=== PATIENT | male | born 1985 | race Caucasian/White ===

== ENCOUNTER → 2019-10-02 | Emergency (ER) | payer OTHER ==
[~2019-10-02] VITALS: Ht 182.9 cm; Wt 136.1 kg
[~2019-10-02] MED LIST: PRILOSEC OTC20 MG PO
--- NOTE | 2019-10-03 07:24 | CONS ---
[facility] [address], [place] [address] Signed DATE OF CONSULTATION: 10/02/2019 CHIEF COMPLAINT: Recurrent esophageal foreign body, proximal esophageal foreign body. HISTORY OF PRESENT ILLNESS: Arlene is a 33-year-old gentleman born with developmental delay and gastroschisis. Also, his skull was already fused at , so he did have surgery to open the skull. Later, he had a traumatic lawnmower injury to his right hand and had to have that operated on and later it sounds like an ankle fracture that needed surgery and all metal has been removed. He came in May 2018 for similar episode involving roast beef. He always points to the level of the larynx. Dr. Nolasco had seen him in consultation. Just as he went into the endoscopy suite, he retched up all the roast beef. The scope was passed and everything seemed to be fine. Some biopsy had been taken out in the midesophagus and those are not available currently. No obvious hiatal hernia. He seemed to have mild gastritis and mild gastroduodenitis. This morning, he was eating breakfast biscuit and felt the food get stuck around the level of larynx. He was spitting up all his saliva. Therefore, his sister brought him to the emergency room for evaluation. He spends time living with his dad and his sister on their [place]. 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 I have been called by the ER physician after glucagon was unsuccessful. When I came to visit Reed, he said within the last 20 minutes he thinks it has gone through, his sister said he has not spit up any saliva in the last 20 minutes. Consequently, we gave him a full cup of water and he drank it down just fine. PAST MEDICAL HISTORY: Gastroesophageal reflux disease/gastroduodenitis, esophageal foreign body in 2018, developmental delay, gastroschisis, cardiac murmur, he has fractured tooth and a chipped tooth. PAST SURGICAL HISTORY: He had a lawnmower accident to his right hand requiring surgery, but no metal. Left ankle fracture was repaired, metal has been removed. He had to have his skull opened at the time of . He had to have surgery to repair his gastroschisis. He had an upper endoscopy with Dr. Nolasco in May 2018. SOCIAL HISTORY: He does not smoke or drink. He has no primary care provider. He lives mainly with his father, David Chatterjee at [phone]. His sister is Madeline at [phone]. His mother is Karishma at [phone]. He does not drive on public highways, but he does drive the farm equipment. His sister happens to be a dental hygienist. She and her father take care of Reed. Electronically Signed By: JESSICA WILL MD 10/03/19 0724 PATIENT NAME: ARLENE CHATTERJEE CONSULTATION DATE OF : 87 REPORT #: [id number] PHYSICIAN: JESSICA WILL MD PCP: SALOME ROBERTS MD REPORT IS CONFIDENTIAL AND NOT TO BE RELEASED WITHOUT AUTHORIZATION [facility] [address] [place] [id number] Signed FAMILY HISTORY: Multiple cancers. REVIEW OF SYSTEMS: He had 10 systems reviewed and his sister was able to help him quite a bit with his previous medical history. No metal in the body to her knowledge. ALLERGIES: Sulfa. MEDICATIONS: Omeprazole since 2007. PHYSICAL EXAMINATION: VITAL SIGNS: Blood pressure 150/92, heart rate 88, respiratory rate 16, temperature is 98.4, he is 96% on room air, he is 6 feet tall at 136 kg. GENERAL: Reed is a 33-year-old gentleman lying supine semi-recumbent in his ER bed. His sister Madeline is with him. He is alert, awake, and interactive. He has no shortness of breath. He handled the saliva quite well during our conversation. LUNGS: Clear to auscultation bilaterally. HEART: Regular rate and rhythm. ABDOMEN: Moderately protuberant. I gave him a full cup of water and he drank the entire cup down and gulps. His sister tells me he eats quite rapidly and she wonders if that is not part of the problem with getting large piece of food stuck in the proximal esophagus. LABORATORY DATA: None. ASSESSMENT/PLAN: Arlene is a 33-year-old gentleman, who presents with recurrent esophageal foreign body. It sounds like he eats quite quickly and does not always chew his food well. He had an upper endoscopy back in 2018 and we can track that down along with the biopsy results in due time. His current episode has now resolved, I think the biscuit finally dissolved and it went through. We are going to have him follow him in our office. We will schedule him for an outpatient barium swallow. He is already involved with outpatient cognitive behavioral therapy as his parents are getting older and his sister wants him to be as independent as possible since she does work multimedia services coordinator. I reviewed all this with Reed and his sister, they have expressed understanding and agreed above plan. Jessica Will MD Electronically Signed By: JESSICA WILL MD 10/03/19 0724 PATIENT NAME: ARLENE CHATTERJEE CONSULTATION DATE OF : 87 REPORT #: [id number] PHYSICIAN: JESSICA WILL MD PCP: SALOME ROBERTS MD REPORT IS CONFIDENTIAL AND NOT TO BE RELEASED WITHOUT AUTHORIZATION [address] [place], [place] [address] Signed ALB/MODL /[id number] cc: Jessica Will MD Copies: JESSICA WILL MD ~ Electronically Signed By: JESSICA WILL MD 10/03/19 0724 PATIENT NAME: ARLENE CHATTERJEE CONSULTATION DATE OF : 87 REPORT #: [id number] PHYSICIAN: JESSICA WILL MD PCP: SALOME ROBERTS MD REPORT IS CONFIDENTIAL AND NOT TO BE RELEASED WITHOUT AUTHORIZATION
== END ==
LOC: ED 09:40
DX: T18.128A Food in esophagus causing other injury, initial encounter (principal); Z88.2 Allergy status to sulfonamides; Z79.899 Other long term (current) drug therapy; X58.XXXA Exposure to other specified factors, initial encounter
CPT/HCPCS: 96374; 96375; 99283-25; J1610; J2405; J7030

== ENCOUNTER 2020-04-29 02:34 | Emergency (ER) | payer OTHER ==
[~2020-04-29] VITALS: Ht 182.9 cm; Wt 136.1 kg
== END 2020-04-29 08:15 | disposition short-term general hospital (02) ==
LOC: ED 02:34
DX: S89.101A Unspecified physeal fracture of lower end of right tibia, initial encounter for closed fracture (principal); S82.831A Other fracture of upper and lower end of right fibula, initial encounter for closed fracture; S40.021A Contusion of right upper arm, initial encounter; S60.211A Contusion of right wrist, initial encounter; V86.69XA Passenger of other special all-terrain or other off-road motor vehicle injured in nontraffic accident, initial encounter; Z20.828 Contact with and (suspected) exposure to other viral communicable diseases; K21.9 Gastro-esophageal reflux disease without esophagitis; Z88.2 Allergy status to sulfonamides; Z79.899 Other long term (current) drug therapy
CPT/HCPCS: 29505; 70450; 71260; 72125; 73060; 73110; 73590; 73610; 73620; 74177; 80053; 81001; 82150; 82550; 83690; 85025; 86850; 86900; 86901; 90471; 90715; 99285-25; C9803; G0480; J1170; J2405; Q9967; U0003

== ENCOUNTER 2021-05-20 06:24 | Emergency (ER) | payer OTHER ==
[~2021-05-20] VITALS: Ht 182.9 cm; Wt 147.3 kg
[2021-05-20] MEDS ORDERED: ONDANSETRON ODT8 MG PO (09:22)
== END 2021-05-20 09:45 | disposition home or self-care (01) ==
LOC: ED 06:24
DX: K29.00 Acute gastritis without bleeding (principal); Z88.2 Allergy status to sulfonamides
CPT/HCPCS: 80053; 81001; 83690; 85025; 99284; J7030

== ENCOUNTER 2023-04-08 19:07 | Emergency (ER) | payer OTHER ==
[~2023-04-08] VITALS: Ht 182.9 cm; Wt 141.0 kg
[~2023-04-08 19:07] MED LIST changes: +HYDROCODON-ACE1 EAC8 PO; +IBUPROFEN200 M1 PO; +MULTI VITAMIN1 EACH PO; +ONDANSETRON ODT8 MG PO; +TYLENOL325 MG PO
[2023-04-08 20:04] LABS: BASOPHILS 0.8 % (0-2); HEMATOCRIT 40.4 % (35.0-50.0); HEMOGLOBIN 13.6 g/dL (12.0-18.0); LYMPHOCYTES 26.7 % (24-44); MCH 31.2 (27-36); MCHC 33.6 g/dl (30-36); MONOCYTES 9.1 % (0-12); NEUTROPHILS 61.4 % (39-80); PLATELET COUNT 292 K/uL (140-440); RBC 4.34 M/ul (4.3-5.7); RDW 14.2 (10.5-15.0)
[2023-04-08 20:12] LABS: INFLUENZA B NAA NEGATIVE (NEGATIVE); RESPIRATORY SYNCYTIAL VIR NAA NEGATIVE (NEGATIVE)
[2023-04-08 20:22] LABS: ALBUMIN 3.9 g/dL (3.4-5.0); ALBUMIN/GLOBULIN RATIO 1.11 (1.1-2.4); ANION GAP 10.5 (7-21); BILIRUBIN, TOTAL 0.4 ng/dL (0.2-1.0); BUN/CREATININE RATIO 12.5 (6.0-28.6); CALCIUM 8.7 mg/dL (8.5-10.1); CREATININE, SERUM 1.12 mg/dL (0.70-1.30); POTASSIUM 3.5 mmol/L (3.5-5.1); PROTEIN, TOTAL 7.4 g/dL (6.4-8.2)
[2023-04-08 20:32] VITALS: BP 143/90
== END 2023-04-08 20:32 | disposition home or self-care (01) ==
LOC: ED 19:07
PROVIDERS: Family Medicine
DX: T18.128A Food in esophagus causing other injury, initial encounter (principal); Z11.52 Encounter for screening for COVID-19; Z88.2 Allergy status to sulfonamides
CPT/HCPCS: 36415; 80053; 85025; 87502; C9803; J1610; U0002

== ENCOUNTER 2023-04-19 09:28 | Day surgery (SDC) | payer OTHER ==
[~2023-04-19] VITALS: Ht 185.4 cm; Wt 141.0 kg
[~2023-04-19 09:28] MED LIST changes: +CALCIUM + VITA1 EAC2 PO; +VITAMIN C125 MG PO
[2023-04-19 09:45] VITALS: BP 130/83
--- NOTE | 2023-04-19 11:21 | NUR ---
04/19/23 1121 Mary Jo Cason 1103- PT ARRIVES TO PACU IN SEMI FLORES POSITION. LR INFUSING TO RH IV, O2 AT 10 L PER MASK. OPA IN PLACE, JAW THRUST NEEDED TO MAINTAIN AIRWAY. PT NON REACTIVE TO ALL STIMULUS. ALL MONITORS IN PLACE. 1108- SATS 100% ON 10L O2 PER MASK, O2 DOWN TO 6L AT THIS TIME. WILL CONTINUE MONITOR. 1110- PT REACTIVE TO PAINFUL STIMULI WITH JAW THRUST. PT LIFT HEAD OFF OF PILLOWS AND HOLDING. PT FOLLOWS COMMANDS TO OPEN EYES AND MOUTH, OPA REMOVED. O2 REMAINS IN PLACE AT 6L PER MASK AT THIS TIME. 1116- PT SATS REMAIN 100% ON 6L O2 PER MASK, PT MOVED TO ROOM AIR AT THIS TIME. RESTING, WILL CONTINUE TO MONITOR. 1120- PT REMAINS REACTIVE TO STIMULUS BUT RESTING AT THIS TIME. BREATHING EVEN AND NON LABORED. O2 SATS 93% ON ROOM AIR.
[2023-04-19 11:35] VITALS: BP 130/76
--- NOTE | 2023-04-19 11:39 | NUR ---
PT RETURNS TO DAY SURGERY ROOM #3 ALERT AND ORIENTED. PT PROVIDED WATER, JELL-O, AND PUDDING PER HIS REQUEST. BED IN THE LOWEST POSITION, BED RAIL UP X1, CALL LIGHT PROVIDED, PT'S MOTHER AT THE BEDSIDE. PT AND PT'S MOTHER UPDATED ON PLAN OF CARE AND TIME NEEDED TO STAY BEFORE DISCHARGE. BOTH PARTIES AGREEABLE TO THIS.
[2023-04-19] MEDS ORDERED: PRILOSEC OTC20 MG PO (11:56)
--- NOTE | 2023-04-19 12:30 | NUR ---
PT ABLE TO SIT UP ON THE EDGE OF THE BED. PT REPORTS NO DIZZINESS OR NAUSEA. PT AMBULATED TO THE RESTROOM AND BACK TO HIS ROOM. PT AND PT'S MOTHER READY FOR THE PT TO GO HOME. PT DRESSING HIMSELF WITH HIS MOTHER AT THE BEDSIDE.
[2023-04-19 12:33] VITALS: BP 135/84
--- NOTE | 2023-04-19 12:43 | NUR ---
DC INSTRUCTIONS PROVIDED TO PT AND PT'S MOTHER. ALL QUESTIONS ANSWERED. BOTH PARTIES STATE UNDERSTANDING. PT ASSISTED INTO THE PASSENGER SIDE OF THE MOTHER'S VEHICLE.
--- NOTE | 2023-04-21 13:56 | OR ---
[facility] [address], [place] [address] Signed DATE OF OPERATION: 04/19/2023 SURGEON: Spencer Chan MD PREOPERATIVE DIAGNOSES: 1. Progressive cervical dysphagia. 2. Developmental delay. POSTOPERATIVE DIAGNOSES: 1. No evidence of stricture of esophagus. 2. 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 3. Probable bile reflux gastritis and esophagitis. PROCEDURE: Esophagogastroduodenoscopy with biopsy. ANESTHESIA: General endotracheal, Spencer Tarango CRNA. INDICATION: This very large 37-year-old white man is a patient of Dr. Ely and known to me from the past. He has had progressive cervical dysphagia. He underwent a swallowing study with speech pathologist assessment on April 18. The report has been reviewed showing dominantly a functional problem of proximal esophageal swallowing. He has no aspiration findings, however. There was enlargement of a C3 osteophyte which may contribute to his cervical dysphagia as well. The patient underwent a video esophagram under my direction in 2020, which showed no evidence of abnormality. The patient has had no hematemesis, but does have dysphagia to various solid foods at least once and sometimes twice a week. He is admitted at this time to undergo upper endoscopy and possible dilation depending on clinical findings. The patient to a degree and his mother absolutely understand the risk of bleeding, infection, and perforation related to upper endoscopy and wished to proceed. FINDINGS: There is no stricture that would command need for dilation. He did have a fair amount of bile within the stomach and some even within the esophagus which would imply bile reflux gastritis and esophagitis. The distal esophagus had no stricture, but certainly did have Murphy's epithelium. Biopsies were taken. The stomach and duodenum were normal. There is no gastric outlet obstruction. CLOtest was negative 15 minutes post procedure. Retroflexed view did not show significant hiatal hernia particularly. There Electronically Signed By: SPENCER CHAN MD 04/21/23 4443 PATIENT NAME: ARLENE BARNHART OPERATIVE REPORT DATE OF : 87 REPORT #: [id number] PHYSICIAN: SPENCER CHAN MD PCP: ROM ELY MD REPORT IS CONFIDENTIAL AND NOT TO BE RELEASED WITHOUT AUTHORIZATION [facility] [address], [place] [address] Signed did appear to be some concentric rings in the mid esophagus suggestive though not diagnostic of the eosinophilic esophagitis and biopsies were obtained to affirm or refute that. Dilation was not undertaken. DESCRIPTION OF PROCEDURE: The patient was brought to the surgical endoscopy suite and placed in the supine position, given a general endotracheal anesthetic based on his large body habitus and other factors. A bite block was placed. An Olympus video upper endoscope was passed in the hypopharynx. Endotracheal tube was well positioned. The scope was easily passed into the esophagus. The esophagus was carefully examined throughout its length. In the distal portion, there was evidence of Murphy's epithelium, but no sign of stricture or neoplasm. The scope was passed to the stomach which was insufflated with air. Fair amount of bile was noted in the stomach. The pylorus was normal. Scope was passed through into the duodenal which was normal. Biopsies were taken of the duodenum to assess for celiac disease. The scope was withdrawn and biopsies taken of the antrum for both KAREL and pathologic testing. Retroflexed view showed the flap valve to be reasonably intact though somewhat effaced. There was no sign of large hiatal hernia. The scope was straightened and withdrawn to the distal esophagus and narrow band imaging employed to affirm Murphy's epithelium in the distal esophagus. Biopsies were obtained. The scope was further withdrawn in the mid esophagus where there was bile-stained mucus and so forth indicative of probable bile reflux esophagitis. Biopsies were taken in the midesophagus as there was a concentric ring appearance to some degree and the possibility of eosinophilic esophagitis as a contributor to his dysphagia was also considered. Further withdrawal showed no other abnormalities. The scope was removed and the patient was taken to the recovery room after conclusion of the procedure after extubation in good condition. CONCLUDING DIAGNOSES: 1. Probable bile reflux gastritis and esophagitis. 2. Murphy's epithelium, distal esophagus without associated large hiatal hernia. 3. Questionable midesophageal changes to suggest eosinophilic esophagitis but no actual stricture. PLAN: I would ask him to initiate Prilosec 20 mg p.o. daily. He was on that in the past, but went off because it "did not work." On the basis of his Murphy's epithelium, it would be best to continue with that with symptom relief or not. I have reviewed his report from the speech pathologist and there is intention for ongoing speech therapy for swallowing improvement and I encouraged the patient and his mother to follow through with that as well. We will see him back in the office in approximately eight weeks, sooner if needed. He will return to the ongoing care of Electronically Signed By: SPENCER CHAN MD 04/21/23 1356 PATIENT NAME: ARLENE BARNHART OPERATIVE REPORT DATE OF : 87 REPORT #: [id number] PHYSICIAN: SPENCER CHAN MD PCP: ROM ELY MD REPORT IS CONFIDENTIAL AND NOT TO BE RELEASED WITHOUT AUTHORIZATION [address], [place] [address] Cara Ely also. MD IVÁN Vazquez/SHABANAL /[id number] cc: Dr. Ely Copies: ~ Electronically Signed By: SPENCER CHAN MD 04/21/23 1356 PATIENT NAME: ARLENE BARNHART OPERATIVE REPORT DATE OF : 87 REPORT #: [id number] PHYSICIAN: SPENCER CHAN MD PCP: ROM ELY MD REPORT IS CONFIDENTIAL AND NOT TO BE RELEASED WITHOUT AUTHORIZATION
--- NOTE | 2023-04-24 16:14 | PATH ---
[facility] [address], [place] [address] Signed SPECIMEN(S): A DUODENAL BIOPSY SPECIMEN(S): B ANTRUM/ANTRAL BIOPSY SPECIMEN(S): C DISTAL ESOPHAGEAL BIOPSY SPECIMEN(S): D MIDDLE ESOPHAGEAL BIOPSY AT 25 CM SPECIMEN(S): E PROXIMAL ESOPHAGEAL BIOPSY AT 15 CM SPECIMEN SOURCE: A. DUODENAL BIOPSY B. ANTRUM/ANTRAL BIOPSY C. DISTAL ESOPHAGEAL BIOPSY D. MIDDLE ESOPHAGEAL BIOPSY AT 25 CM E. PROXIMAL ESOPHAGEAL BIOPSY AT 15 CM CLINICAL HISTORY: EGD. Esophageal dysphagia FINAL PATHOLOGIC DIAGNOSIS: A. Duodenum, biopsies: - Mild chronic duodenitis with Alanna's gland hyperplasia, negative for active inflammation or significant villous blunting. B. Antrum, biopsies: - Mild chronic gastritis with vascular congestion, negative for active inflammation. - No H. pylori bacteria are detected by HE stain. C. Distal esophagus, biopsies: - Murphy's metaplasia with low-grade glandular dysplasia and focal nuclear atypia bordering on high-grade dysplasia. See comment. - Negative for invasive carcinoma. D. Middle esophagus at 25 cm, biopsies: - Mild chronic esophagitis with increased eosinophils (up to 10 per high-power field). - Negative for Murphy's metaplasia, dysplasia or malignancy. E. Proximal esophagus at 15 cm, biopsy: - Benign squamous esophageal mucosa, negative for increased eosinophils or Murphy's metaplasia. COMMENT: The distal esophageal biopsies (part C) are notable for areas of low-grade glandular dysplasia, characterized by nuclear enlargement, stratification and loss of polarity. Focal areas suspicious for high-grade dysplasia are also identified, but the biopsy tissue is also PATIENT NAME: ARLENE BARNHART PATHOLOGY DATE OF : 87 REPORT #: [id number] PHYSICIAN: SLY PATHOLOGY PCP: ROM ELY MD REPORT IS CONFIDENTIAL AND NOT TO BE RELEASED WITHOUT AUTHORIZATION [facility] [address] [place], [place] [address] Signed inflamed. Clinical correlation with close continued surveillance is recommended. For quality and reliability engineer, this case is reviewed by another member of [facility] (LYLE). AMB MICROSCOPIC EXAMINATION: Histologic sections of all submitted blocks are examined by light microscopy. These findings, together with the gross examination, support the pathologic diagnosis. GROSS DESCRIPTION: A. The specimen, labeled and designated "Sen, duodenal biopsy," is received in formalin and consists of two moore soft tissue fragments, ranging from 0.2-0.4 cm. Entirely submitted in (A1). B. The specimen, labeled and designated "Sen, antral biopsy," is received in formalin and consists of one moore soft tissue fragment, 0.4 cm. Entirely submitted in (B1). C. The specimen, labeled and designated "Sen, distal esophageal biopsy," is received in formalin and consists of seven moore soft tissue fragments, ranging from 0.1-0.4 cm. Entirely submitted in (C1). D. The specimen, labeled and designated "Sen, middle esophageal biopsy at 25 cm," is received in formalin and consists of three moore soft tissue fragments, ranging from 0.4-1.5 cm. Entirely submitted in (D1). E. The specimen, labeled and designated "Sen, proximal esophageal biopsy at 15 cm," is received in formalin and consists of one moore soft tissue fragment, 0.6 cm. Entirely submitted in (E1). VB (under the direct supervision of a pathologist) The Gross Description was prepared using a voice recognition system. The report was reviewed for accuracy; however, sound-alike word errors, addition and/or deletions may occur. If there is any question about this report, please contact Client Services. ADDITIONAL NOTES: Immunohistochemical and/or in situ hybridization studies if performed in this case included appropriate positive controls that reacted as expected. This test was developed and its performance characteristics determined by [facility]. It has not been cleared or approved by the U.S. Food and Drug Administration. The FDA has determined that such clearance or approval is not PATIENT NAME: ARLENE BARNHART PATHOLOGY DATE OF : [birth year] REPORT #: [id number] PHYSICIAN: SLY STONE PCP: ROM ELY MD REPORT IS CONFIDENTIAL AND NOT TO BE RELEASED WITHOUT AUTHORIZATION [address] [address] Signed necessary. This test is used for clinical purposes. It should not be regarded as investigational or for research. [facility] is certified under the Clinical Laboratory Improvement Amendments of 1988 (CLIA) as qualified to perform high complexity clinical laboratory testing. PERFORMING LABORATORY: Technical component was performed by [facility], [address] [place] [id number] (CLIA# [id number]). Professional interpretation was performed by [facility] - [facility] [address] [facility] [id number] Diagnostician: Terrie Deleon MD Pathologist Electronically Signed 04/24/2023 Copies: ~ PATIENT NAME: ARLENE BARNHART [facility] PATHOLOGY DATE OF : 87 REPORT #: [id number] PHYSICIAN: SLY STONE PCP: ROM ELY MD REPORT IS CONFIDENTIAL AND NOT TO BE RELEASED WITHOUT AUTHORIZATION
== END 2023-04-19 12:35 | disposition home or self-care (01) ==
LOC: DS 09:28 → OPS 09:28 → DS 10:00 → OPS 11:00
PROVIDERS: ATTEND Surgery
PROC: 0DB68ZX Excision of Stomach, Via Natural or Artificial Opening Endoscopic, Diagnostic (ICD-10-PCS; 2023-04-19)
PROC: 0DB58ZX Excision of Esophagus, Via Natural or Artificial Opening Endoscopic, Diagnostic (ICD-10-PCS; 2023-04-19)
PROC: 0DB98ZX Excision of Duodenum, Via Natural or Artificial Opening Endoscopic, Diagnostic (ICD-10-PCS; principal; 2023-04-19 11:00)
DX: K22.710 Barrett's esophagus with low grade dysplasia (principal); K20.0 Eosinophilic esophagitis; K29.80 Duodenitis without bleeding; K29.50 Unspecified chronic gastritis without bleeding; F81.9 Developmental disorder of scholastic skills, unspecified; I10 Essential (primary) hypertension; E66.01 Morbid (severe) obesity due to excess calories; Z88.2 Allergy status to sulfonamides; Z79.899 Other long term (current) drug therapy
CPT/HCPCS: 00731; 88305; J0330; J1100; J1885; J2250; J2405; J2704; J2765; J3010; J7121

== ENCOUNTER 2024-10-03 08:36 | Day surgery (SDC) | payer OTHER ==
[~2024-10-03] VITALS: Ht 188 cm; Wt 145.0 kg
[~2024-10-03 08:36] MED LIST changes: +B12 ACTIVE1000 MCG PO; +IBLOOD GLUCOSE TEST STRIP 1 EA TEST VI PRN; +LACTATED RINGER'S 1,000 ML IV SCH; +LIDOCAINE HCL 1% 5 ML SDV INJ ONE; +LIDOCAINE HCL 4% 50 ML BTL TOP SCH; +MIDAZOLAM HCL 5 MG/5 ML VIAL IV PRN; +fentaNYL citrate 100 MCG/2 ML VIAL IV PRN
[2024-10-03 08:55] VITALS: BP 138/82
[2024-10-03] MEDS ORDERED: fentaNYL citrate 100 MCG/2 ML VIAL ONE (09:28)
[2024-10-03] MEDS ORDERED: MIDAZOLAM HCL 5 MG/5 ML VIAL ONE (09:28)
--- NOTE | 2024-10-03 10:23 | NUR ---
10/03/24 1023 Mary Jo Cason 1010- PT PRESENTS TO PACU, SEMI FLORES POSITION. LR INFUSING TO RH IV, ABD SOFT, NON DISTENDED. BREATHING EVEN AND NON LABORED. ALL MONITORS IN PLACE. PT AWAKE BUT DROWSY. DENIES PAIN AND NAUSEA. 1022- PT REMAINS AWAKE, NO SIGNS OF DISTRESS.
[2024-10-03 10:31] VITALS: BP 134/90
--- NOTE | 2024-10-03 12:04 | OR ---
[facility] [facility] [address], [place] [address] Signed DATE OF OPERATION: 10/03/2024 SURGEON: Spencer Chan MD PREOPERATIVE DIAGNOSIS: Known Murphy's esophagus, variable degrees of dysplasia.. POSTOPERATIVE DIAGNOSES: 1. Distal esophageal Murphy's esophagitis and midesophageal felinization. 2. Bile gastritis. PROCEDURE: Esophagogastroduodenoscopy with biopsy. ANESTHESIA: Intravenous sedation; fentanyl 100 mcg and Versed 4 mg. INDICATION: This 38-year-old white man with a BMI of 41.04, is a patient of Dr. Ely. He presented with in 2019 and upper endoscopy confirmed significant esophagitis, active inflammation and low-grade stricture. Murphy's esophagus was identified and questionable was noted. He has undergone surveillance endoscopy since that time after actual treatment and dysplasia has not been demonstrated. Acute inflammatory changes may have accounted for those findings. He last underwent upper endoscopy on October 05, 2023 with the uncertainty of atypia and certainly no malignancy. He continues on PPI medication daily. He has no symptoms of dysphagia or hematemesis. He is admitted to undergo surveillance upper endoscopy. If he found to have dysplasia in fact ablative therapies will be considered. The risk of bleeding, infection, and perforation were reviewed with him and his sister (overall nonfarm animal caretaker) and they understand and wished to proceed. FINDINGS: There was definitely inflammation of the distal esophagus and Murphy's epithelium underlying this. There was no sign of neoplasm proper. The stomach had a fair amount of bile in it and some reactive bile gastritis. The duodenum was normal. CLOtest was negative. In the mid esophagus, there were changes of felinization of the esophagus concordant to early eosinophilia noted on previous endoscopy. Biopsies include the stomach and the distal esophagus and mid esophagus. Extensive biopsies were taken of the distal esophagus. Electronically Signed By: SPENCER CHAN MD 10/03/24 1204 PATIENT NAME: ARLENE BARNHART OPERATIVE REPORT DATE OF : 87 REPORT #: [id number] PHYSICIAN: SPENCER CHAN MD PCP: ROM ELY MD REPORT IS CONFIDENTIAL AND NOT TO BE RELEASED WITHOUT AUTHORIZATION [facility] [address], [place] [address] Signed DESCRIPTION OF PROCEDURE: The patient was brought to the endoscopy suite and given topical lidocaine hypopharyngeal anesthesia and placed in the lateral decubitus position. He was given intravenous sedation to the point of slurred speech and nystagmus. A bite block was placed. An Olympus video upper endoscope was passed into the hypopharynx. The vocal cords appeared normal. Scope was advanced to the esophagus. In the midesophagus, there was a pattern of felinization suggestive of eosinophilic esophagitis, but no thickening particularly. The scope was advanced to the distal esophagus where Murphy's epithelium and chronic inflammatory changes were noted. The scope was passed in the stomach which was insufflated with air. There was a fair amount of bilious fluid and associated bile gastritis. Antral mucosa appeared mildly inflamed. The pylorus was normal. Scope was passed through into the duodenum. Biopsies were taken of the duodenum. The scope was withdrawn and biopsies then taken of the antrum for both KAREL and pathologic testing. Retroflexed view showed an effaced flap valve consistent with small hiatal hernia. The scope was withdrawn to the distal esophagus, where multiple biopsies were taken circumferentially to assess for atypia or dysplasia in relation to Murphy's epithelium that has been demonstrated. Further withdrawal allowed for biopsy of the midesophagus to assess for eosinophilic esophagitis. Further withdrawal showed no other abnormality. The patient was taken to the recovery room in good condition. CONCLUDING DIAGNOSES: Ongoing inflammation Murphy's epithelium, distal esophagus, but much improved compared to the past. Depending on histologic findings, further management will be outlined. This might be surveillance if no atypia or dysplasia is identified or may require referral for ablative therapies including radiofrequency ablation, etc. Spencer Chan MD JM/MODL /[id number] cc: Dr. Ely Electronically Signed By: SPENCER CHAN MD 10/03/24 1204 PATIENT NAME: ARLENE BARNHART OPERATIVE REPORT DATE OF : 87 REPORT #: [id number] PHYSICIAN: SPENCER CHAN MD PCP: ROM ELY MD REPORT IS CONFIDENTIAL AND NOT TO BE RELEASED WITHOUT AUTHORIZATION [address] [address] Signed Copies: ~ Electronically Signed By: SPENCER CHAN MD 10/03/24 1204 PATIENT NAME: ARLENE BARNHART GRETEL OPERATIVE REPORT DATE OF : 87 REPORT #: [id number] PHYSICIAN: SPENCER CHAN MD PCP: ROM ELY MD REPORT IS CONFIDENTIAL AND NOT TO BE RELEASED WITHOUT AUTHORIZATION
--- NOTE | 2024-10-09 12:33 | PATH ---
[facility] [address] [place], [place] [address] Signed SPECIMEN(S): A DUODENAL BIOPSY SPECIMEN(S): B ANTRUM BIOPSY SPECIMEN(S): C LOWER ESOPHAGEAL BIOPSY SPECIMEN(S): D MIDDLE ESOPHAGEAL BIOPSY SPECIMEN SOURCE: A. DUODENAL BIOPSY B. ANTRUM BIOPSY C. LOWER ESOPHAGEAL BIOPSY D. MIDDLE ESOPHAGEAL BIOPSY CLINICAL HISTORY: History of Murphy's esophagus, distal esophagitis, rule out dysplasia-distal esophagus FINAL PATHOLOGIC DIAGNOSIS: A. Duodenal biopsy: - Benign duodenal mucosa with superficial epithelial erosion (nonspecific). - Negative for increased epithelial inflammation in the residual duodenal epithelium. B. Antrum biopsy: - Benign gastric mucosa with superficial mild chronic inflammation (nonspecific). - Negative for evidence of Helicobacter organisms on routine HE stained sections. C. Lower esophageal biopsy: - Esophageal and gastric mucosa with specialized intestinal (goblet cell) metaplasia, indefinite for mild dysplasia. - Abundant increased epithelial eosinophils (greater than 30 per high-power field). - See comment. D. Mid esophageal biopsy: - Benign esophageal epithelium, negative for significantly increased epithelial eosinophils. COMMENT: Increased esophageal eosinophils at the GE junction can be seen in reflux esophagitis and eosinophilic esophagitis. Clinical correlation requested. As part of [facility]' Quality Improvement Program, this case was reviewed by another member of our pathology staff ([email or web address]). CLAIRE:LOLY:en PATIENT NAME: ARLENE BANRHART PATHOLOGY DATE OF : 87 REPORT #: [id number] PHYSICIAN: SLY STONE PCP: ROM ELY MD REPORT IS CONFIDENTIAL AND NOT TO BE RELEASED WITHOUT AUTHORIZATION [facility] [address] [place], [place] [address] Signed MICROSCOPIC EXAMINATION: A-B. Histologic sections of all submitted blocks are examined by light microscopy. These findings, together with the gross examination, support the pathologic diagnosis. C. A P53 immunostain is performed with appropriate controls on block C1 and shows decreased expression in the area of concern, supporting the diagnosis. D. Histologic sections of all submitted blocks are examined by light microscopy. These findings, together with the gross examination, support the pathologic diagnosis. JVR:[facility] GROSS DESCRIPTION: A. The specimen, labeled and designated "Sen, duodenal biopsy," is received in formalin and consists of one moore soft tissue fragment, 0.4 cm. Entirely submitted in (A1). B. The specimen, labeled and designated "Sen, antrum biopsy," is received in formalin and consists of two moore soft tissue fragments, ranging from 0.4-0.5 cm. Entirely submitted in (B1). C. The specimen, labeled and designated "Sen, lower esophageal biopsy," is received in formalin and consists of multiple moore soft tissue fragments, 0.1-0.6 cm. Entirely submitted in (C1). D. The specimen, labeled and designated "Sen, middle esophageal biopsy," is received in formalin and consists of two moore soft tissue fragments, ranging from 0.2-0.8 cm. Entirely submitted in (D1). VB (under the direct supervision of a pathologist) The Gross Description was prepared using a voice recognition system. The report was reviewed for accuracy; however, sound-alike word errors, addition and/or deletions may occur. If there is any question about this report, please contact Client Services. ADDITIONAL NOTES: Immunohistochemical and/or in situ hybridization studies were performed on this case with the appropriate positive controls that react as expected. This test was developed and its performance characteristics determined by [facility]. It has not been cleared or approved by the U.S. Food and Drug Administration. The FDA has determined that such clearance or approval is not necessary. This test is used for clinical purposes. It should not be regarded as investigational or for research. [facility] is certified under the Clinical Laboratory Improvement PATIENT NAME: ARLENE BARNHART PATHOLOGY DATE OF : 87 REPORT #: [id number] PHYSICIAN: [facility] PCP: ROM ELY MD REPORT IS CONFIDENTIAL AND NOT TO BE RELEASED WITHOUT AUTHORIZATION [facility] [address] [place], [place] [address] Signed Amendments of 1988 (CLIA) as qualified to perform high complexity clinical laboratory testing. This assay has not been validated for specimens that have been decalcified. PERFORMING LABORATORY: Technical component was performed by [facility], [address] [place] [id number] (CLIA# [id number]). Professional interpretation was performed by [facility], [address] [place] [id number] (CLIA#: [id number]). Diagnostician: Ryan Schreiber MD Pathologist Electronically Signed 10/09/2024 Copies: ~ PATIENT NAME: ARLENE BARNHART PATHOLOGY DATE OF : 87 REPORT #: [id number] PHYSICIAN: SLY STONE PCP: ROM ELY MD REPORT IS CONFIDENTIAL AND NOT TO BE RELEASED WITHOUT AUTHORIZATION
== END 2024-10-03 10:35 | disposition home or self-care (01) ==
LOC: OPS 08:36 → DS 10:30 → OPS 10:35
PROVIDERS: ATTEND Surgery
PROC: 0DB68ZX Excision of Stomach, Via Natural or Artificial Opening Endoscopic, Diagnostic (ICD-10-PCS; 2024-10-03)
PROC: 0DB38ZX Excision of Lower Esophagus, Via Natural or Artificial Opening Endoscopic, Diagnostic (ICD-10-PCS; 2024-10-03)
PROC: 0DB28ZX Excision of Middle Esophagus, Via Natural or Artificial Opening Endoscopic, Diagnostic (ICD-10-PCS; 2024-10-03)
PROC: 0DB98ZX Excision of Duodenum, Via Natural or Artificial Opening Endoscopic, Diagnostic (ICD-10-PCS; principal; 2024-10-03 10:30)
DX: K22.70 Barrett's esophagus without dysplasia (principal); K29.50 Unspecified chronic gastritis without bleeding; K29.60 Other gastritis without bleeding; I10 Essential (primary) hypertension; R62.59 Other lack of expected normal physiological development in childhood; K21.00 Gastro-esophageal reflux disease with esophagitis, without bleeding; E66.01 Morbid (severe) obesity due to excess calories; Z68.41 Body mass index [BMI] 40.0-44.9, adult; Z88.2 Allergy status to sulfonamides; Z79.899 Other long term (current) drug therapy
CPT/HCPCS: 99153; G0500; J2250; J3010; J7121